=== PATIENT | male | born 1965 | race Caucasian/White ===

== ENCOUNTER 2017-02-28 11:11 | Emergency (ER) | payer OTHER ==
[~2017-02-28] VITALS: Ht 177.8 cm; Wt 106.0 kg
[2017-02-28 11:16] VITALS: BP 174/92; PULSE 109; RESP 17; O2SAT 95
--- NOTE | 2017-02-28 11:24 | ED.REPORT ---
HPI-General Illness Date of Service February 28, 2017 ED Provider: Dr. Carreno The patient is a 51 year old male who presents to the ED due to a possible infection in his fractured left great toe. The pt was on his honeymoon in [facility] 5 days ago, when he was climbing up some stairs and jammed his big toe against the stairs. He fractured his toe and had surgical repair done in [facility]. there are [address] and he is using crutches. The pt returned to the [place] on 2 days ago. C/o associated mild fever and 2/10 toe pain. He was placed on Naproxen, Toradol, and Levaquin. The pt is almost done with his 7 day course of antibiotics. He denies nausea and vomiting. Nursing Notes Stated Complaint: LEFT TOE PAIN Chief Complaint: General Complaint Nursing Notes Reviewed: Yes Allergies: Coded Allergies: No Known Allergies (Unverified , 02/28/17) Scheduled Amoxicillin/Clav K 875-125 mg (Augmentin 875-125 mg) 1 Each Tablet 1 TABLET PO BID Scheduled PRN Hydrocodone-Acetaminophen 5-325 mg (Hydrocodone-Acetaminophen 5-325 mg) 1 Each Tablet 1 TABLET PO Q4H PRN PRN For Pain General Time Seen by MD: 11:23 Chief Complaint Other (left great toe fracture) Hx Obtained From: Patient Arrived By: Walk-in Sudden in Onset?: Yes Onset Occurred: 5 days ago Symptom Duration: Since onset Caused by: Accidental Location: : Foot left Quality: Painful Severity: Current: Pain level 2 out of 10 Associated with: Reports: Fever Recent Healthcare: Recent doctor visit, Recent hospitalization, Previous surgery Similar Sx Previous: Yes Past Medical History Past Medical History denies Past Surgical History left great toe fracture Smoking History Unknown if Ever Smoker Social History Other Social History: Good social support, , Local resident Ambulatory Status Independent Review of Systems Full Review of Systems Constitutional: Reports: Fever GI: Denies: Nausea, Vomiting Musculoskeletal: Reports: Joint pain (left great toe), Joint swelling (left great toe) Skin: Reports Swelling Complete sys rev & neg: except as marked. Physical Exam Vital Signs Vital Signs Date Time Temp Pulse Resp B/P Pulse Ox O2 Delivery O2 Flow Rate FiO2 02/28/17 11:16 36.8 109 17 174/92 95 Room Air Initial VS: Reviewed Head / Eyes: Atraumatic, Normocephalic, PERRL ENT: Mucous membranes moist Respiratory: Breath sounds normal, Clear to auscultation Cardiovascular: Regular rate & rhythm, Heart sounds normal Abdomen / GI: Soft, Non-tender, No guarding, No rebound, No distention Lymphatic: No lymphadenopathy Skin: Warm, Dry Neurologic: Alert, Oriented General/Constitutional: Awake, Alert, Cooperative, Not toxic appearing Left Great Toe: Positive: Swelling present..., Negative: Ecchymosis present, Erythema present, Joint effusion present, ROM reduced, Warmth present [address] on left great toe fracture no discharge no fluctuance no signs or symptoms of infection Re-Eval/Medical Decision Med Decision/Clinical Course 51-year-old male presenting 5 days status post right great toe fracture in [place]. He had an open toe fracture and received surgical repair and washout and antibiotics in [place]. There are no signs and symptoms of infection at this time. It appears to be healing well. Patient has been taking Levaquin. Patient referred to orthopedics, daniel taped, cleaned, given surgical boot, given prescription for Augmentin. Patient will follow up with orthopedics this week and with primary doctor in 1-2 days. He is nonweightbearing and has crutches. Return precautions have any signs symptoms infection, poor wound healing, sutures coming out, any other new or worsening symptoms. Time of Eval: 12:05 Re-Evaluation/Progress Note: There are no signs or symptoms of infection. Plan to discharge with referral to orthopedics. Pt understands and agrees with plan. F/U and RTER warnings given. All questions addressed. Counseled Regarding: Diagnosis, Lab results, Need for follow-up, When/why to return to ED Discharge & Departure Primary Impression: Toe fracture, left Encounter type: initial encounter Toe: great toe Disposition: Home Discharge Condition All VS Reviewed: Yes Condition: Stable Patient Instructions: Acute Wound Care (GEN) Additional Instructions: There are no current sign of infection in the wound. Be sure to continue and finish your whole course of antibiotics. Call the orthopedic surgeon today and set up a follow up appointment as soon as possible. I have also given you a phone number for a primary care physician to follow up with. You can clean the wound daily, but keep the sutures dry. Return to the Emergency Department for any new or worsening symptoms including any signs of infection like swelling, redness, warmth, discharge, high fever, nausea, or vomiting. Congratulations on your wedding and honeymoon! I hope you still had a great time [place]. Referrals: Alex Mott MD (PCP) [facility] Marcell Moeller MD [employer] Attestation Portion of this note were transcribed by Aurora Holbrook. I, Dr. Carreno, personally performed the history, physical exam, and medical decision-making: I reviewed and confirmed the accuracy for the information in the transcribed note. Signed by: reynaldo Funez, 02/28/17 1300 copies to: Alex Mott MD; [facility]; Marcell Moeller MD, Ben M MD February 28, 2017 11:23 Aurora Holbrook February 28, 2017 12:01
[2017-02-28] MEDS ORDERED: CEPH-512 PO (12:06)
[2017-02-28] MEDS ORDERED: HYDR-4003 PO (12:06)
[2017-02-28] MEDS ORDERED: SULF1TAB7 PO (12:06)
[2017-02-28] MEDS ORDERED: AMOX-366 PO (12:11)
[2017-02-28] MEDS ORDERED: TdaP Vaccine 0.5 mL Inj IM ONE (12:30)
== END 2017-02-28 13:05 | disposition home or self-care (01) ==
LOC: SED 11:11
DX: S92.492A Other fracture of left great toe, initial encounter for closed fracture (principal); W23.1XXA Caught, crushed, jammed, or pinched between stationary objects, initial encounter; Y92.89 Other specified places as the place of occurrence of the external cause; Y93.89 Activity, other specified; Y99.8 Other external cause status; Z98.890 Other specified postprocedural states; Z23 Encounter for immunization